=== PATIENT | male | born 1980 | race Caucasian/White ===

== ENCOUNTER 2017-01-31 23:22 | Emergency (ER) | payer MEDICAID, OTHER ==
[~2017-01-31] VITALS: Ht 182.9 cm; Wt 143.0 kg
[~2017-01-31 23:22] MED LIST: NOCURR
[2017-02-01] MEDS ORDERED: MORPHINE SULFATE 10 MG/ML SYRINGE IVP ONE (00:45)
[2017-02-01] MEDS ORDERED: SODIUM CHLORIDE 0.9% 1,000 ML IV ONE (00:45)
[2017-02-01] MEDS ORDERED: ONDANSETRON HCL 4 MG/2 ML VIAL IVP ONE (00:45)
[2017-02-01 01:00] LABS: BASOPHILS # (AUTO) 0.04 K/uL (0.00-0.20); BASOPHILS % (AUTO) 0.4 % (0.0-2.0); EOSINOPHILS % (AUTO) 2.23 % (1.0-6.0); HEMATOCRIT 42.8 % (41-53); HEMOGLOBIN 14.3 g/dL (13.5-17.5); LYMPHOCYTES # (AUTO) 1.1 K/uL (1.0-4.8); LYMPHOCYTES % (AUTO) 12.1 % (22.0-44.0); MEAN CORPUSCULAR HEMOGLOBIN 28.7 pg (26.0-34.0); MEAN CORPUSCULAR HGB CONC 33.4 G/dL (31.0-37.0); MEAN CORPUSCULAR VOLUME 86 fL (80-100); MONOCYTES # (AUTO) 0.4 K/uL (0.1-1.0); MONOCYTES % (AUTO) 4.6 % (2.0-9.0); NEUTROPHILS # (AUTO) 7.3 K/uL (1.8-7.7); NEUTROPHILS % (AUTO) 80.8 % (40.0-70.0); PLATELET COUNT (AUTO) 166 K/uL (150-450); RED BLOOD CELL COUNT(AUTO) 4.96 MIL/uL (4.50-5.90); RED CELL DISTRIBUTION WIDTH 13.4 % (11.5-14.5)
[2017-02-01 01:06] LABS: ANION GAP 8 mmol/L (8-16); CARBON DIOXIDE 30 mmol/L (22-29); CHLORIDE 103 mmol/L (98-107); CREATININE 0.89 mg/dL (0.60-1.30); GLOMERULAR FILTR. RATE CALC > 60 mL/min (>60); POTASSIUM 3.6 mmol/L (3.5-5.1); SODIUM SERUM 141 mmol/L (136-145); UREA NITROGEN, BLOOD 18 mg/dL (7-18)
[2017-02-01 01:10] LABS: APPEARANCE,URINE CLEAR (CLEAR); GLUCOSE, URINE (UA) NEGATIVE (NEGATIVE); KETONES,URINE NEGATIVE (NEGATIVE); LEUKOCYTE ESTERASE ,URINE NEGATIVE (NEGATIVE); OCCULT BLOOD,URINE NEGATIVE (NEGATIVE); PH,URINE 6.5 (5.0-8.0); PROTEIN,URINE NEGATIVE (NEGATIVE)
[2017-02-01 01:11] LABS: ADD UA MICROSCOPIC NO
[2017-02-01 01:12] LABS: ALANINE AMINOTRANSFERASE 29 U/L (12-78); ASPARTATE AMINOTRANSFERASE 18 U/L (15-37); BILIRUBIN,TOTAL 0.4 mg/dL (0.1-1.0); TOTAL PROTEIN, SERUM 7.2 g/dL (6.4-8.2)
[2017-02-01 04:42] VITALS: BP 120/81
== END 2017-02-01 05:00 | disposition home or self-care (01) ==
LOC: EMS 23:27
DX: K56.7 Ileus, unspecified (principal); F17.210 Nicotine dependence, cigarettes, uncomplicated
CPT/HCPCS: 36415; 74010; 80053; 81003; 83690; 85025; 96361; 96374; 96375; 99285; J2270; J2405; J7030

== ENCOUNTER 2021-05-27 02:18 | Emergency (ER) | payer MEDICAID ==
[~2021-05-27] VITALS: Ht 182.9 cm; Wt 150.0 kg
[2021-05-27] MEDS ORDERED: KETOROLAC TROMETHAMINE 30 MG/ML VIAL IM ONE (03:15)
[2021-05-27 03:47] VITALS: BP 201/139
[2021-05-27 04:32] LABS: ANION GAP 7 mmol/L (8-16); CALCIUM, TOTAL 8.9 mg/dL (8.8-10.5); CARBON DIOXIDE 32 mmol/L (22-29); CHLORIDE 105 mmol/L (98-107); CREATININE 0.87 mg/dL (0.60-1.30); GLOMERULAR FILTR. RATE CALC > 60 mL/min (>60); GLUCOSE,RANDOM 140 mg/dL (70-110); POTASSIUM 4.4 mmol/L (3.5-5.1); SODIUM SERUM 144 mmol/L (136-145); UREA NITROGEN, BLOOD 13 mg/dL (7-18)
[2021-05-27 04:38] LABS: ALANINE AMINOTRANSFERASE 60 U/L (12-78); ALBUMIN 3.9 g/dL (3.4-5.0); ALKALINE PHOSPHATASE 73 U/L (46-116); ASPARTATE AMINOTRANSFERASE 38 U/L (15-37); BILIRUBIN,TOTAL 0.4 mg/dL (0.1-1.0); LIPASE 96 U/L (73-393); TOTAL PROTEIN, SERUM 8.1 g/dL (6.4-8.2)
[2021-05-27 04:43] LABS: BASOPHILS % (AUTO) 0.5 % (0.0-2.0); EOSINOPHILS % (AUTO) 1.4 % (1.0-6.0); HEMATOCRIT 43.6 % (41-53); HEMOGLOBIN 14.6 g/dL (13.5-17.5); LYMPHOCYTES % (AUTO) 10.7 % (22.0-44.0); MEAN CORPUSCULAR HGB CONC 33.4 G/dL (31.0-37.0); MEAN CORPUSCULAR VOLUME 87 fL (80-100); MONOCYTES # (AUTO) 0.3 K/uL (0.1-1.0); MONOCYTES % (AUTO) 3.7 % (2.0-9.0); NEUTROPHILS # (AUTO) 7.7 K/uL (1.8-7.7); NEUTROPHILS % (AUTO) 83.7 % (40.0-70.0); PLATELET COUNT (AUTO) 215 K/uL (150-450); RED BLOOD CELL COUNT(AUTO) 5.03 MIL/uL (4.50-5.90); RED CELL DISTRIBUTION WIDTH 13.8 % (11.5-14.5)
[2021-05-27 04:49] LABS: APPEARANCE,URINE CLEAR (CLEAR); BILIRUBIN,URINE NEGATIVE (NEGATIVE); GLUCOSE, URINE (UA) NEGATIVE (NEGATIVE); KETONES,URINE NEGATIVE (NEGATIVE); LEUKOCYTE ESTERASE ,URINE NEGATIVE (NEGATIVE); NITRATE,URINE NEGATIVE (NEGATIVE); OCCULT BLOOD,URINE NEGATIVE (NEGATIVE); PH,URINE 6.5 (5.0-8.0); PROTEIN,URINE NEGATIVE (NEGATIVE)
[2021-05-27 04:57] LABS: AMPHET/METH SCREEN,URINE POSITIVE (NEGATIVE); BARBITURATE SCREEN, URINE NEGATIVE (NEGATIVE); BENZODIAZEPINES SCREEN,URINE NEGATIVE (NEGATIVE); CANNABINOID SCREEN,URINE POSITIVE (NEGATIVE); COCAINE SCREEN,URINE NEGATIVE (NEGATIVE); METHADONE SCREEN, URINE NEGATIVE (NEGATIVE); OPIATE SCREEN,URINE NEGATIVE (NEGATIVE)
[2021-05-27 05:00] LABS: PHENCYCLIDINE SCREEN,URINE NEGATIVE (NEGATIVE)
[2021-05-27 05:08] LABS: BACTERIA,URINE None Seen /HPF (None Seen); RBC,URINE None Seen /HPF (0-2); WBC,URINE None Seen /HPF (0-5)
== END 2021-05-27 06:00 | disposition home or self-care (01) ==
LOC: EMS 02:19
DX: R10.9 Unspecified abdominal pain (principal); R11.10 Vomiting, unspecified; F10.129 Alcohol abuse with intoxication, unspecified; F17.210 Nicotine dependence, cigarettes, uncomplicated; F15.10 Other stimulant abuse, uncomplicated; Y90.0 Blood alcohol level of less than 20 mg/100 ml
CPT/HCPCS: 36415; 80053; 80307; 81001; 83690; 85025; 96372; 99283; G0480; J1885

== ENCOUNTER 2021-08-10 18:51 | Emergency (ER) | payer MEDICAID ==
[~2021-08-10] VITALS: Ht 182.9 cm; Wt 145.4 kg
[2021-08-10] MEDS ORDERED: ONDANSETRON HCL 4 MG/2 ML VIAL IVP ONE (19:30)
[2021-08-10] MEDS ORDERED: MORPHINE SULFATE 4 MG/ML SYRINGE IVP ONE (19:30)
[2021-08-10] MEDS ORDERED: MORPHINE SULFATE 2 MG/ML SYRINGE IVP ONE (21:15)
[2021-08-10 22:24] VITALS: BP 143/97
== END 2021-08-10 22:42 | disposition home or self-care (01) ==
LOC: EMS 18:51
DX: S43.102A Unspecified dislocation of left acromioclavicular joint, initial encounter (principal); F17.210 Nicotine dependence, cigarettes, uncomplicated; W06.XXXA Fall from bed, initial encounter; Y93.89 Activity, other specified; Y92.89 Other specified places as the place of occurrence of the external cause; Y99.8 Other external cause status
CPT/HCPCS: 71045; 73000; 73030; 73060; 96374; 96375; 96376; 99284; J2270 ×2; J2405

== ENCOUNTER 2022-03-27 19:42 | Inpatient (IN) | payer MEDICAID ==
[~2022-03-27] VITALS: Ht 183.5 cm; Wt 178.7 kg
[2022-03-27] MEDS ORDERED: VANCOMYCIN HCL 1.5 GM in DEXTROSE 5%-WATER 250 ML IV ONE (21:30)
[2022-03-27] MEDS ORDERED: SODIUM CHLORIDE 0.9% 3,000 ML IV ONE (21:30)
[2022-03-27] MEDS ORDERED: MORPHINE SULFATE 2 MG/ML SYRINGE IVP ONE (22:30)
[2022-03-27 22:35] LABS: EOSINOPHILS % (AUTO) 0 % (1.0-6.0); HEMATOCRIT 41.5 % (41-53); HEMOGLOBIN 13.8 g/dL (13.5-17.5); LYMPHOCYTES # (AUTO) 0.3 K/uL (1.0-4.8); LYMPHOCYTES % (AUTO) 2.8 % (22.0-44.0); MEAN CORPUSCULAR HEMOGLOBIN 28.1 pg (26.0-34.0); MEAN CORPUSCULAR HGB CONC 33.2 G/dL (31.0-37.0); MEAN CORPUSCULAR VOLUME 85 fL (80-100); MONOCYTES # (AUTO) 0.1 K/uL (0.1-1.0); MONOCYTES % (AUTO) 1.4 % (2.0-9.0); PLATELET COUNT (AUTO) 129 K/uL (150-450); RED BLOOD CELL COUNT(AUTO) 4.91 MIL/uL (4.50-5.90); RED CELL DISTRIBUTION WIDTH 14.2 % (11.5-14.5)
[2022-03-27 22:39] LABS: NEUTROPHILS % (AUTO) 95.8 % (40.0-70.0)
[2022-03-27 22:50] LABS: LACTIC ACID 1.4 mmol/L (0.4-2.0)
[2022-03-27 22:55] LABS: ANION GAP 11 mmol/L (8-16); CALCIUM, TOTAL 8.8 mg/dL (8.8-10.5); CARBON DIOXIDE 27 mmol/L (22-29); CHLORIDE 96 mmol/L (98-107); CREATININE 0.92 mg/dL (0.60-1.30); GLOMERULAR FILTR. RATE CALC > 60 mL/min (>60); GLUCOSE,RANDOM 101 mg/dL (70-110); POTASSIUM 3.7 mmol/L (3.5-5.1); SODIUM SERUM 134 mmol/L (136-145); UREA NITROGEN, BLOOD 13 mg/dL (7-18)
[2022-03-27 22:59] LABS: ALANINE AMINOTRANSFERASE 35 U/L (12-78); ASPARTATE AMINOTRANSFERASE 31 U/L (15-37); TOTAL PROTEIN, SERUM 7.1 g/dL (6.4-8.2)
[2022-03-27 23:12] LABS: ALKALINE PHOSPHATASE 57 U/L (46-116)
[2022-03-27] MEDS ORDERED: ONDANSETRON HCL 4 MG/2 ML VIAL IVP PRN (23:45)
[2022-03-27] MEDS: HEPARIN SODIUM,PORCINE 5,000 UNITS/ML VIAL SQ SCH (23:56)
[2022-03-28 00:21] LABS: COVID AG,FIA SOURCE NASOPHARYNGEAL
[2022-03-28] MEDS ORDERED: RINGERS SOLUTION,LACTATED 1,000 ML IV SCH (01:15)
[2022-03-28] MEDS: MORPHINE SULFATE 2 MG/ML SYRINGE IVP PRN ×2 (06:48→21:34)
[2022-03-28 07:00] VITALS: BP 130/75
[2022-03-28 07:26] VITALS: BP 122/76
[2022-03-28] MEDS ORDERED: SODIUM CHLORIDE 0.9% 250 ML IV ONE (08:16)
[2022-03-28] MEDS: HEPARIN SODIUM,PORCINE 5,000 UNITS/ML VIAL SQ SCH ×2 (08:18→16:25)
[2022-03-28] MEDS: VANCOMYCIN HCL 1.5 GM in DEXTROSE 5%-WATER 250 ML IV SCH ×3 (08:18→16:25)
[2022-03-28] MEDS ORDERED: SODIUM CHLORIDE 0.9% 100 ML ONE ×3 (08:41→10:14)
[2022-03-28] MEDS ORDERED: IOHEXOL 350 MG/ML 150 ML VIAL ONE ×2 (09:52→10:14)
[2022-03-28 11:08] VITALS: BP 133/80
[2022-03-28 16:18] VITALS: BP 126/74
[2022-03-28 21:04] VITALS: BP 130/56
[2022-03-29] VITALS (7 sets, daily range): BP systolic 121–153; BP diastolic 70–88
[2022-03-29] MEDS: HEPARIN SODIUM,PORCINE 5,000 UNITS/ML VIAL SQ SCH ×4 (00:47→23:31)
[2022-03-29] MEDS: VANCOMYCIN HCL 1.5 GM in DEXTROSE 5%-WATER 250 ML IV SCH ×4 (00:47→23:31)
[2022-03-29] MEDS: MORPHINE SULFATE 2 MG/ML SYRINGE IVP PRN ×2 (03:15→22:48)
[2022-03-29] MEDS ORDERED: FUROSEMIDE 20 MG/2 ML VIAL IVP ONE (04:00)
[2022-03-29 06:44] LABS: BASOPHILS % (AUTO) 0.3 % (0.0-2.0); EOSINOPHILS % (AUTO) 0 % (1.0-6.0); HEMATOCRIT 37.1 % (41-53); HEMOGLOBIN 12.7 g/dL (13.5-17.5); LYMPHOCYTES # (AUTO) 0.6 K/uL (1.0-4.8); LYMPHOCYTES % (AUTO) 6.5 % (22.0-44.0); MEAN CORPUSCULAR HEMOGLOBIN 28.4 pg (26.0-34.0); MEAN CORPUSCULAR HGB CONC 34.3 G/dL (31.0-37.0); MEAN CORPUSCULAR VOLUME 83 fL (80-100); MONOCYTES # (AUTO) 0.3 K/uL (0.1-1.0); MONOCYTES % (AUTO) 3.1 % (2.0-9.0); NEUTROPHILS # (AUTO) 8.9 K/uL (1.8-7.7); PLATELET COUNT (AUTO) 158 K/uL (150-450); RED BLOOD CELL COUNT(AUTO) 4.48 MIL/uL (4.50-5.90); RED CELL DISTRIBUTION WIDTH 14.1 % (11.5-14.5)
[2022-03-29 07:03] LABS: NEUTROPHILS % (AUTO) 90.1 % (40.0-70.0)
[2022-03-29 07:05] LABS: ANION GAP 7 mmol/L (8-16); CALCIUM, TOTAL 9.1 mg/dL (8.8-10.5); CARBON DIOXIDE 29 mmol/L (22-29); CHLORIDE 96 mmol/L (98-107); CREATININE 0.73 mg/dL (0.60-1.30); GLUCOSE,RANDOM 120 mg/dL (70-110); POTASSIUM 3.6 mmol/L (3.5-5.1); SODIUM SERUM 132 mmol/L (136-145); UREA NITROGEN, BLOOD 7 mg/dL (7-18)
[2022-03-29 07:22] LABS: GLOMERULAR FILTR. RATE CALC > 60 mL/min (>60)
[2022-03-29] MEDS ORDERED: SODIUM CHLORIDE 0.9% 100 ML ONE (14:33)
[2022-03-29] MEDS ORDERED: IOHEXOL 350 MG/ML 100 ML VIAL ONE (14:33)
[2022-03-29] MEDS ORDERED: SODIUM CHLORIDE 0.9% 250 ML IV ONE (16:41)
[2022-03-29] MEDS: ACETAMINOPHEN 325 MG TABLET PO PRN ×2 (17:42→21:26)
[2022-03-30] MEDS: CloNIDine HCL 0.1 MG TABLET PO PRN (04:08)
[2022-03-30 04:35] VITALS: BP 185/99
[2022-03-30] MEDS: MORPHINE SULFATE 2 MG/ML SYRINGE IVP PRN ×4 (06:31→21:30)
[2022-03-30 07:08] VITALS: BP 162/93
[2022-03-30 07:36] LABS: VANCOMYCIN,RANDOM 7.7 mcg/mL (25.0-50.0)
[2022-03-30] MEDS: VANCOMYCIN HCL 1.5 GM in DEXTROSE 5%-WATER 250 ML IV SCH (07:59)
[2022-03-30] MEDS: HEPARIN SODIUM,PORCINE 5,000 UNITS/ML VIAL SQ SCH ×3 (08:00→23:33)
[2022-03-30 09:59] LABS: ANION GAP 9 mmol/L (8-16); CALCIUM, TOTAL 9.1 mg/dL (8.8-10.5); CARBON DIOXIDE 28 mmol/L (22-29); CHLORIDE 96 mmol/L (98-107); CREATININE 0.72 mg/dL (0.60-1.30); GLOMERULAR FILTR. RATE CALC > 60 mL/min (>60); GLUCOSE,RANDOM 113 mg/dL (70-110); SODIUM SERUM 133 mmol/L (136-145); UREA NITROGEN, BLOOD 7 mg/dL (7-18)
[2022-03-30 11:25] VITALS: BP 152/81
[2022-03-30] MEDS: VANCOMYCIN 1GM/WATER(PEG/NADA) 200 ML IV SCH ×3 (12:11→23:34)
[2022-03-30 15:12] VITALS: BP 129/78
[2022-03-30] MEDS: ACETAMINOPHEN 325 MG TABLET PO PRN ×2 (17:34→23:33)
[2022-03-30 20:28] VITALS: BP 144/82
[2022-03-30 22:36] LABS: GLUCOMETER DEV NAME(LOC) 5S.2B; GLUCOSE,POINT OF CARE 111 MG/DL (70-110)
[2022-03-30 23:40] VITALS: BP 153/88
[2022-03-31] MEDS: MORPHINE SULFATE 2 MG/ML SYRINGE IVP PRN ×4 (02:18→19:53)
[2022-03-31 04:09] VITALS: BP 140/81
[2022-03-31] MEDS: ACETAMINOPHEN 325 MG TABLET PO PRN ×2 (06:16→18:21)
[2022-03-31] MEDS: VANCOMYCIN 1GM/WATER(PEG/NADA) 200 ML IV SCH ×3 (06:16→18:21)
[2022-03-31 07:00] LABS: ANION GAP 6 mmol/L (8-16); CALCIUM, TOTAL 9.1 mg/dL (8.8-10.5); CARBON DIOXIDE 29 mmol/L (22-29); CHLORIDE 99 mmol/L (98-107); CREATININE 0.63 mg/dL (0.60-1.30); GLUCOSE,RANDOM 108 mg/dL (70-110); POTASSIUM 4.1 mmol/L (3.5-5.1); SODIUM SERUM 134 mmol/L (136-145); UREA NITROGEN, BLOOD 8 mg/dL (7-18)
[2022-03-31 07:11] LABS: GLOMERULAR FILTR. RATE CALC > 60 mL/min (>60)
[2022-03-31 08:09] VITALS: BP 171/94
[2022-03-31] MEDS: HEPARIN SODIUM,PORCINE 5,000 UNITS/ML VIAL SQ SCH ×2 (10:05→15:28)
[2022-03-31] MEDS: CloNIDine HCL 0.1 MG TABLET PO PRN (10:05)
[2022-03-31] MEDS: NYSTATIN 30 GM CREAM TP SCH (10:05)
[2022-03-31] MEDS: SILVER SULFADIAZINE 1% 25 GM CREAM TP SCH (10:06)
[2022-03-31 12:19] VITALS: BP 151/96
[2022-03-31 15:24] VITALS: BP 136/82
[2022-03-31 19:44] VITALS: BP 134/65
[2022-04-01] MEDS: VANCOMYCIN 1GM/WATER(PEG/NADA) 200 ML IV SCH ×4 (00:05→17:58)
[2022-04-01] MEDS: HEPARIN SODIUM,PORCINE 5,000 UNITS/ML VIAL SQ SCH ×3 (00:05→15:50)
[2022-04-01 00:12] VITALS: BP 155/100
[2022-04-01] MEDS ORDERED: SODIUM CHLORIDE 0.9% 250 ML IV ONE (02:10)
[2022-04-01] MEDS: MORPHINE SULFATE 2 MG/ML SYRINGE IVP PRN ×4 (02:14→20:27)
[2022-04-01 04:25] VITALS: BP 128/80
[2022-04-01 07:26] LABS: ANION GAP 5 mmol/L (8-16); CALCIUM, TOTAL 8.2 mg/dL (8.8-10.5); CARBON DIOXIDE 28 mmol/L (22-29); CHLORIDE 98 mmol/L (98-107); CREATININE 0.53 mg/dL (0.60-1.30); GLOMERULAR FILTR. RATE CALC > 60 mL/min (>60); GLUCOSE,RANDOM 107 mg/dL (70-110); POTASSIUM 3.8 mmol/L (3.5-5.1); SODIUM SERUM 131 mmol/L (136-145); UREA NITROGEN, BLOOD 7 mg/dL (7-18); VANCOMYCIN,RANDOM 9.5 mcg/mL (25.0-50.0)
[2022-04-01 07:49] VITALS: BP 142/80
[2022-04-01] MEDS: NYSTATIN 30 GM CREAM TP SCH (08:34)
[2022-04-01] MEDS: PIPERACILLIN/TAZO 3.375 GM/D5W 50 ML IV SCH ×3 (11:17→21:16)
[2022-04-01 11:22] VITALS: BP 138/88
[2022-04-01] MEDS: ACETAMINOPHEN 325 MG TABLET PO PRN (13:27)
[2022-04-01] MEDS: SILVER SULFADIAZINE 1% 25 GM CREAM TP SCH (15:47)
[2022-04-01 16:17] VITALS: BP 125/79
[2022-04-01 20:00] VITALS: BP 132/93
[2022-04-02] MEDS: HEPARIN SODIUM,PORCINE 5,000 UNITS/ML VIAL SQ SCH ×3 (00:05→16:32)
[2022-04-02] MEDS: VANCOMYCIN 1GM/WATER(PEG/NADA) 200 ML IV SCH ×4 (00:05→17:56)
[2022-04-02] MEDS: MORPHINE SULFATE 2 MG/ML SYRINGE IVP PRN ×4 (00:06→19:03)
[2022-04-02] MEDS ORDERED: SODIUM CHLORIDE 0.9% 250 ML IV ONE (00:14)
[2022-04-02 00:50] VITALS: BP 135/74
[2022-04-02] MEDS: PIPERACILLIN/TAZO 3.375 GM/D5W 50 ML IV SCH ×4 (04:19→22:03)
[2022-04-02 05:08] VITALS: BP 140/93
[2022-04-02 07:12] LABS: ANION GAP 9 mmol/L (8-16); CALCIUM, TOTAL 8.2 mg/dL (8.8-10.5); CARBON DIOXIDE 28 mmol/L (22-29); CHLORIDE 97 mmol/L (98-107); CREATININE 0.71 mg/dL (0.60-1.30); GLOMERULAR FILTR. RATE CALC > 60 mL/min (>60); GLUCOSE,RANDOM 128 mg/dL (70-110); POTASSIUM 4.4 mmol/L (3.5-5.1); SODIUM SERUM 134 mmol/L (136-145); UREA NITROGEN, BLOOD 8 mg/dL (7-18)
[2022-04-02 08:18] VITALS: BP 132/77
[2022-04-02] MEDS: SILVER SULFADIAZINE 1% 25 GM CREAM TP SCH (11:32)
[2022-04-02] MEDS: NYSTATIN 30 GM CREAM TP SCH (11:32)
[2022-04-02 11:39] VITALS: BP 144/97
[2022-04-02 16:37] VITALS: BP 146/76
[2022-04-02] MEDS: ACETAMINOPHEN 325 MG TABLET PO PRN (18:01)
[2022-04-02 20:11] VITALS: BP 115/74
[2022-04-03] VITALS (7 sets, daily range): BP systolic 117–150; BP diastolic 63–97
[2022-04-03] MEDS: HEPARIN SODIUM,PORCINE 5,000 UNITS/ML VIAL SQ SCH ×4 (00:01→23:20)
[2022-04-03] MEDS: MORPHINE SULFATE 2 MG/ML SYRINGE IVP PRN ×5 (00:01→22:53)
[2022-04-03] MEDS: VANCOMYCIN 1GM/WATER(PEG/NADA) 200 ML IV SCH ×2 (00:01→07:26)
[2022-04-03] MEDS: PIPERACILLIN/TAZO 3.375 GM/D5W 50 ML IV SCH ×2 (05:30→09:45)
[2022-04-03 06:19] LABS: ANION GAP 7 mmol/L (8-16); CALCIUM, TOTAL 8.3 mg/dL (8.8-10.5); CARBON DIOXIDE 30 mmol/L (22-29); CHLORIDE 98 mmol/L (98-107); CREATININE 0.54 mg/dL (0.60-1.30); GLUCOSE,RANDOM 109 mg/dL (70-110); POTASSIUM 4.5 mmol/L (3.5-5.1); SODIUM SERUM 135 mmol/L (136-145); UREA NITROGEN, BLOOD 9 mg/dL (7-18); VANCOMYCIN,RANDOM 10.8 mcg/mL (25.0-50.0)
[2022-04-03 06:24] LABS: GLOMERULAR FILTR. RATE CALC > 60 mL/min (>60)
[2022-04-03] MEDS: NYSTATIN 30 GM CREAM TP SCH (09:44)
[2022-04-03] MEDS: SILVER SULFADIAZINE 1% 25 GM CREAM TP SCH (09:44)
[2022-04-03] MEDS ORDERED: BISACODYL 5 MG EC TABLET PO PRN (13:15)
[2022-04-03] MEDS ORDERED: VANCOMYCIN HCL 1.5 GM in DEXTROSE 5%-WATER 250 ML IV ONE (14:00)
[2022-04-03] MEDS ORDERED: MORPHINE SULFATE 2 MG/ML SYRINGE IVP ONE (14:00)
[2022-04-03] MEDS: PIPERACILLIN SODIUM/TAZOBACTAM 4.5 GM in DEXTROSE 5%-WATER 100 ML IV SCH ×2 (16:38→22:53)
[2022-04-03] MEDS: VANCOMYCIN HCL 1.25 GM in DEXTROSE 5%-WATER 250 ML IV SCH (18:11)
[2022-04-03] MEDS ORDERED: SODIUM CHLORIDE 0.9% 250 ML IV ONE (22:34)
[2022-04-04] MEDS: VANCOMYCIN HCL 1.25 GM in DEXTROSE 5%-WATER 250 ML IV SCH ×5 (00:42→23:37)
[2022-04-04] MEDS: PIPERACILLIN SODIUM/TAZOBACTAM 4.5 GM in DEXTROSE 5%-WATER 100 ML IV SCH ×4 (03:15→21:29)
[2022-04-04] MEDS: MORPHINE SULFATE 2 MG/ML SYRINGE IVP PRN ×5 (03:21→23:18)
[2022-04-04 04:00] VITALS: BP 139/58
[2022-04-04] MEDS: ACETAMINOPHEN 325 MG TABLET PO PRN ×2 (06:11→20:05)
[2022-04-04 06:59] LABS: ANION GAP 7 mmol/L (8-16); CALCIUM, TOTAL 8.3 mg/dL (8.8-10.5); CARBON DIOXIDE 31 mmol/L (22-29); CHLORIDE 97 mmol/L (98-107); GLUCOSE,RANDOM 114 mg/dL (70-110); POTASSIUM 4.6 mmol/L (3.5-5.1); SODIUM SERUM 135 mmol/L (136-145); UREA NITROGEN, BLOOD 7 mg/dL (7-18)
[2022-04-04 07:00] LABS: GLOMERULAR FILTR. RATE CALC > 60 mL/min (>60)
[2022-04-04 07:06] VITALS: BP 134/60
[2022-04-04] MEDS: HEPARIN SODIUM,PORCINE 5,000 UNITS/ML VIAL SQ SCH ×3 (08:10→23:41)
[2022-04-04] MEDS: SILVER SULFADIAZINE 1% 25 GM CREAM TP SCH (08:12)
[2022-04-04] MEDS: NYSTATIN 30 GM CREAM TP SCH (08:12)
[2022-04-04] MEDS ORDERED: CEPH-558 PO (11:28)
[2022-04-04] MEDS ORDERED: CLIN300C58 PO (11:28)
[2022-04-04] MEDS ORDERED: OXYC-490 PO (11:28)
[2022-04-04 14:59] VITALS: BP 140/64
[2022-04-04] MEDS ORDERED: SODIUM CHLORIDE 0.9% 250 ML IV ONE (19:02)
[2022-04-04 19:40] VITALS: BP 116/61
[2022-04-05] MEDS: PIPERACILLIN SODIUM/TAZOBACTAM 4.5 GM in DEXTROSE 5%-WATER 100 ML IV SCH ×4 (03:15→20:58)
[2022-04-05 04:10] VITALS: BP 137/72
[2022-04-05] MEDS: MORPHINE SULFATE 2 MG/ML SYRINGE IVP PRN ×4 (04:24→20:59)
[2022-04-05] MEDS: VANCOMYCIN HCL 1.25 GM in DEXTROSE 5%-WATER 250 ML IV SCH ×4 (05:45→22:43)
[2022-04-05 06:25] LABS: ANION GAP 7 mmol/L (8-16); CALCIUM, TOTAL 8.4 mg/dL (8.8-10.5); CARBON DIOXIDE 29 mmol/L (22-29); CHLORIDE 98 mmol/L (98-107); CREATININE 0.64 mg/dL (0.60-1.30); GLUCOSE,RANDOM 113 mg/dL (70-110); POTASSIUM 4.7 mmol/L (3.5-5.1); SODIUM SERUM 134 mmol/L (136-145); UREA NITROGEN, BLOOD 8 mg/dL (7-18); VANCOMYCIN,RANDOM 13.7 mcg/mL (25.0-50.0)
[2022-04-05 06:26] LABS: GLOMERULAR FILTR. RATE CALC > 60 mL/min (>60)
[2022-04-05] MEDS ORDERED: SODIUM CHLORIDE 0.9% 250 ML IV ONE (08:04)
[2022-04-05] MEDS: HEPARIN SODIUM,PORCINE 5,000 UNITS/ML VIAL SQ SCH ×3 (08:08→22:43)
[2022-04-05] MEDS: ACETAMINOPHEN 325 MG TABLET PO PRN ×2 (08:11→22:44)
[2022-04-05] MEDS: NYSTATIN 30 GM CREAM TP SCH (08:13)
[2022-04-05] MEDS: SILVER SULFADIAZINE 1% 25 GM CREAM TP SCH (08:13)
[2022-04-05 08:51] VITALS: BP 130/78
[2022-04-05 16:00] VITALS: BP 127/65
[2022-04-05 20:11] VITALS: BP 115/72
[2022-04-05] MEDS ORDERED: DiphenhydrAMINE HCL 50 MG/ML VIAL IVP ONE (23:00)
[2022-04-06] MEDS: MORPHINE SULFATE 2 MG/ML SYRINGE IVP PRN ×2 (04:42→09:04)
[2022-04-06 04:49] VITALS: BP 142/69
[2022-04-06] MEDS: SILVER SULFADIAZINE 1% 25 GM CREAM TP SCH (05:16)
[2022-04-06] MEDS: NYSTATIN 30 GM CREAM TP SCH (05:16)
[2022-04-06 06:27] LABS: ANION GAP 6 mmol/L (8-16); CALCIUM, TOTAL 8.3 mg/dL (8.8-10.5); CARBON DIOXIDE 31 mmol/L (22-29); CHLORIDE 95 mmol/L (98-107); CREATININE 0.72 mg/dL (0.60-1.30); GLUCOSE,RANDOM 133 mg/dL (70-110); POTASSIUM 4.2 mmol/L (3.5-5.1); SODIUM SERUM 132 mmol/L (136-145); UREA NITROGEN, BLOOD 9 mg/dL (7-18)
[2022-04-06 06:40] LABS: GLOMERULAR FILTR. RATE CALC > 60 mL/min (>60)
[2022-04-06 07:43] VITALS: BP 133/75
[2022-04-06] MEDS: ACETAMINOPHEN 325 MG TABLET PO PRN (08:15)
[2022-04-06] MEDS: HEPARIN SODIUM,PORCINE 5,000 UNITS/ML VIAL SQ SCH (08:20)
[2022-04-06] MEDS ORDERED: PRED-729 PO (11:41)
== END 2022-04-06 12:45 | disposition home health service (06) | DRG 383 ==
LOC: EMS 19:55 → 5S 03-28 05:49 → 6N 04-03 20:35
PROVIDERS: ADMIT Internal Medicine; ATTEND Internal Medicine
DX: L03.115 Cellulitis of right lower limb (principal); A41.9 Sepsis, unspecified organism; E44.0 Moderate protein-calorie malnutrition; E66.2 Morbid (severe) obesity with alveolar hypoventilation; Z68.43 Body mass index [BMI] 50.0-59.9, adult; I89.0 Lymphedema, not elsewhere classified; Z20.822 Contact with and (suspected) exposure to COVID-19; F17.210 Nicotine dependence, cigarettes, uncomplicated; K59.00 Constipation, unspecified; Z90.49 Acquired absence of other specified parts of digestive tract; Z71.6 Tobacco abuse counseling
CPT/HCPCS: 71275; 73701; 80048; 80053; 80202; 82962; 83605; 83735; 85025; 85362; 85379; 87040; 87070; 93306; 93971; 97116; 97162; 97530; 99285; J1200; J1644; J1940; J2270; J2405; J2543; J3370; J7050; J7060; J7120; Q9967